=== PATIENT | female | born 1985 | race Caucasian/White ===

== ENCOUNTER 2024-03-08 15:36 | Emergency (ER) | payer OTHER, SELFPAY ==
[2024-03-08 15:37] VITALS: BP 128/86
--- NOTE | 2024-03-08 16:06 | ED.GENMED ---
History of Present Illness
General
Chief Complaint: Cold/Flu/URI Symptoms
Time Seen by Provider: 03/08/24 16:03
Travel History
Have you had any contact with someone who has COVID-19?: No
Do you have any symptoms of coronavirus? Fever > 100 degrees, chills, cough, shortness of breath, sore throat, loss of taste or smell, muscle aches, or headache?: No
History of Present Illness
History of Present Illness:
HPI: For the past 2 weeks, the patient's been having left ear pain, 'razor blades in my throat', cough, congestion, postnasal drip. She was at urgent care a few days ago and they gave her 1 dose of steroids but did not continue. She was not on
antibiotics. She has not had fevers but feels feverish. She has never smoked.
EXAM:
GENERAL: Well appearing in mild distress with frequent wet sounding cough
HEENT: Moist oral mucosa, hoarse voice, no significant palpable cervical lymphadenopathy, both TMs unremarkable
CARDIOVASCULAR: No murmurs, normal heart rate, regular rhythm, No chest wall tenderness
PULMONARY: No respiratory distress, breath sounds are clear and equal other than very slightly decreased breath sounds
ABDOMEN: Soft with no peritoneal signs, no tenderness
NEUROLOGIC: Excellent strength all extremities, no coordination deficits
PSYCHIATRIC: Appropriate mental status, normal insight and judgement
EXTREMITIES: Nontender, no edema, moves all extremities equally
SKIN: No rash, no lesions
TIME OF INITIAL ENCOUNTER: 4:15 PM
NUMBER AND COMPLEXITY OF PROBLEMS ADDRESSED AT THE ENCOUNTER
� Chronic conditions affecting care: Frequent headaches, anemia
� Acute Exacerbation and/or Progression of Chronic Illness: This is an acute problem
� Differential Diagnosis includes: Viral syndrome, bacterial infection
AMOUNT AND/OR COMPLEXITY OF DATA TO BE REVIEWED AND ANALYZED
� I performed an independent evaluation of and my interpretation is:
EKG:
CT:
X-rays: Chest x-ray clear
Laboratory Studies:
Other:
� Review of other/old records: I reviewed records. In 2017, the patient was admitted with viral syndrome/myalgias but it appears the patient signed out AMA at that time, returned, and was discharged the following day.
� Clinical information was obtained by an independent historian: None needed
� Prescriptions/Medications Considered but not given:
� Further testing considered but not performed: I offered and considered labs over the patient declines
RISK OF COMPLICATIONS AND/OR MORBIDITY OR MORTALITY OF PATIENT MANAGEMENT
� Social determinants of health affecting care: Lives at home
� Discussion with other providers:
� Escalation of care including admission/observation vs risk of discharge considered: The patient has had 2 weeks of symptoms. She did try a day of steroids without much improvement. Will give prolonged course of steroids for a
total of 5 days and also add antibiotics as symptoms have been ongoing for 2 weeks and she has had some subjective fevers. Overall still may likely have a viral syndrome however the anti-inflammatory effects from the azithromycin may be of some
benefit.
Past History
Past History
ED Past Medical History: Other (Anemia)
ED Past Surgical History: Gynecological and Other (wisdom teeth)
Social History
Tobacco: Former smoker
Alcohol: Occasional
Drug: None
Personal: Single
Living: with family
Employment: Employed
Family History
Family History: Hypertension
Phy Exam
Physical Exam
Physical Exam:
See HPI
Course
Orders/Labs/Results
Orders:
Orders
03/08/24 16:16
Azithromycin [Zithromax] 500 mg PO NOW STA
Prednisone [Deltasone] 50 mg PO NOW STA
03/08/24 16:20
CR Chest - 2 Views Urgent
Comment:
Reason For Exam: cough
Vital Signs
Initial and Last Documented VS:
Initial Vital Signs
Temp Pulse Resp BP Pulse Ox
98.1 F 80 20 128/86 100
03/08/24 15:37 03/08/24 15:37 03/08/24 15:37 03/08/24 15:37 03/08/24 15:37
Last Documented Vital Signs
Temp Pulse Resp BP Pulse Ox
98.1 F 72 18 128/86 98
03/08/24 15:37 03/08/24 16:38 03/08/24 16:38 03/08/24 15:37 03/08/24 16:38
*Critical Care Note
Total Time (30-74mins, 75-104mins- exclusive of procedures): Not Applicable
ED Attending Note
-
Portions of this chart may have been created with voice recognition software.� Occasional wrong word or��sound alike� substitutions may have occurred due to the inherent limitations of voice recognition software.
Discharge Plan
Departure
Patient Disposition: Home (Routine Discharge)
Date of Disposition: 03/08/24
Time of Disposition: 17:18
Patient with high blood pressure during this ER visit?: Yes
Discharge Problem:
Laryngitis, acute
Instructions: Laryngitis (DC)
Prescriptions:
New
prednisone 50 mg tablet
50 mg PO DAILY Qty: 4 0RF
azithromycin [Zithromax] 250 mg tablet
250 mg PO DAILY Qty: 4 0RF
No Action
amoxicillin-pot clavulanate 875-125 mg tablet
1 tab PO BID Qty: 13 0RF
ibuprofen 600 mg tablet
600 mg PO Q6H PRN (Reason: pain) Qty: 20 0RF
Referrals:
NONE,* [Family Provider] -
Activity Restrictions/Additional Instructions:
It is highly likely that you have a viral syndrome however it is still possible there could be a bacterial component. Your vital signs are normal. The x-ray shows no sign of pneumonia. I have placed you on both an antibiotic, azithromycin, as
well as a steroid, prednisone. Next dose of each tomorrow.
Interventions
Interventions:
*Risk Screen - Suicide Last Done: 03/08/24 15:37
*General Assessment Last Done: 03/08/24 15:37
*Neglect/Abuse Screening Last Done: 03/08/24 15:37
ED- Pulmonary Assessment Last Done: 03/08/24 16:38
Discharge Date and Time
Print Language: HUNGARIAN
[2024-03-08] MEDS: DELTASONE 50 MG PO (16:28)
[2024-03-08] MEDS: ZITHROMAX 500 MG PO (16:30)
== END 2024-03-08 17:27 | disposition home or self-care (01) ==
LOC: EMR 15:36
PROVIDERS: EMERGENCY PHYSICIAN Emergency Medicine
DX: J04.0 Acute laryngitis (principal); R03.0 Elevated blood-pressure reading, without diagnosis of hypertension; Z87.891 Personal history of nicotine dependence
CPT/HCPCS: 99283; 71046